=== PATIENT | female | born 1950 | race Caucasian/White ===

== ENCOUNTER 2019-05-14 21:58 | Inpatient (IN) | payer MEDICARE, OTHER, SELFPAY ==
[~2019-05-14] VITALS: Ht 157.5 cm; Wt 98.6 kg
[2019-05-14 00:25] VITALS: BP 131/68
[2019-05-14] MEDS ORDERED: PERCOCET 5MG/325MG TAB PO PRN (22:30)
[2019-05-14] MEDS ORDERED: MORPHINE 4 MG/ML 1ML VIAL/SYRINGE (J2270) IV PRN (22:30)
[2019-05-15 00:25] VITALS: BP 131/68
[2019-05-15] MEDS ORDERED: VITA-176 PO (01:03)
[2019-05-15] MEDS ORDERED: ASPI81TA85 PO (01:03)
[2019-05-15] MEDS ORDERED: LISI10TA15 PO (01:03)
[2019-05-15] MEDS ORDERED: ATOR1TAB19 PO (01:03)
[2019-05-15] MEDS ORDERED: VITAD1000T PO (01:03)
[2019-05-15] MEDS ORDERED: PROBCAP14 PO (01:03)
[2019-05-15] MEDS: LR 1,000 ML IV SCH ×4 (01:53→23:52)
[2019-05-15] MEDS: ONDANSETRON 4MG/2ML VIAL (J2405) IV PRN ×2 (02:02→02:03)
[2019-05-15] MEDS: AMPICILLIN SOD/SULBACTAM SOD 3 GM in D5W MINI-BAG PLUS 100 ML IV SCH ×4 (04:12→23:51)
[2019-05-15] MEDS: KETOROLAC 30 MG/ML VIAL (J1885) IV PRN ×2 (04:15→11:29)
[2019-05-15 06:00] VITALS: BP 110/55
[2019-05-15 06:55] LABS: BASO % 0.2 % (0.0-1.0); HEMATOCRIT 39.6 % (36.0-47.0); HEMOGLOBIN 12.8 g/dl (12.0-15.5); LYMPH # 2.4 10^3/uL (1.5-4.5); MEAN CORPUSCULAR HEMOGLOBIN 29.8 pg (27.0-33.0); MEAN CORPUSCULAR HGB CONC 32.3 g/dl (32.0-36.5); MEAN CORPUSCULAR VOLUME 92.1 fl (80.0-96.0); MONO # 1.5 10^3/uL (0.0-0.8); MONO % 7.4 % (0.0-5.0); NEUTROPHILS # 15.7 10^3/uL (1.8-7.7); NEUTROPHILS % 79.7 % (36.0-66.0); PLATELET COUNT, AUTOMATED 233 10^3/uL (150-450); WHITE BLOOD COUNT 19.7 10^3/uL (4.0-10.0)
[2019-05-15 07:19] LABS: ALBUMIN 2.8 GM/DL (3.2-5.2); ALT/SGPT 17 U/L (12-78); BILIRUBIN,TOTAL 0.7 MG/DL (0.2-1.0); BLOOD UREA NITROGEN 11 MG/DL (7-18); CALCIUM LEVEL 8.3 MG/DL (8.8-10.2); CARBON DIOXIDE LEVEL 28 MEQ/L (21-32); CHLORIDE LEVEL 104 MEQ/L (98-107); CREATININE FOR GFR 0.94 MG/DL (0.55-1.30); GLOMERULAR FILTRATION RATE > 60.0 (>45); GLUCOSE, FASTING 147 MG/DL (70-100); POTASSIUM SERUM 3.6 MEQ/L (3.5-5.1); SODIUM LEVEL 140 MEQ/L (136-145); TOTAL PROTEIN 5.9 GM/DL (6.4-8.2)
[2019-05-15] MEDS: ENOXAPARIN 40 MG/0.4 ML SYRINGE (J1650) SC SCH (09:19)
[2019-05-15] MEDS: SENOKOT S TAB PO SCH ×2 (09:19→23:51)
[2019-05-15] MEDS: PANTOPRAZOLE 40MG INJ (PROTONIX) (C9113) IV SCH (09:19)
--- NOTE | 2019-05-15 12:15 | HPEPDOC ---
General Surgery H&P Date of Admission May 15, 2019 Attending Physician: MARIAELENA BENAVIDES MD History and Physical CHIEF COMPLAINT: abdominal pain HISTORY OF PRESENT ILLNESS: Patient is transferred from [facility] ED where she presented late afternoon on 05/14/19 with 2 days history of abdominal pain centered on her epigastric area with radiation to her chest, mid back area, right and left upper quadrant area with accompanying nausea and vomiting. She was reported to be very uncomfortable despite receiving two doses of IV dilaudid. Her workup at [facility] shows she has leukocytosis of 14,000, normal LFTs. A CT scan of the abdomen and pelvis done there just shows presence of distended gallbladder with gallstones. She resides in [facility] and she is in the area or camping. 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 She did have a couple episodes earlier in the week where she had some epigastric discomfort but would go away after an hour or 2. This episode that started did not resolve, persistent and worsened. ALLERGIES: Please see below. HOME MEDICATIONS: Please see below. PAST MEDICAL HISTORY: 1. Hypercholesterolemia. 2. Hypertension 3. Diabetes done and any medication. PAST SURGICAL HISTORY: 1. 2 sections. 2. Hysterectomy 3. Infraumbilical incisional hernia repair. PERSONAL/SOCIAL HISTORY: Denies smoking, alcohol use, or recreational drug use. REVIEW OF SYSTEMS: GENERAL: Denies chills, fatigue, fever, weight gain and weight loss. HEENT: Denies blurred vision and double vision. Denies ear symptoms. Denies hoarseness. NECK: Denies any neck pain. CARDIOVASCULAR: Denies chest pain and palpitations. MUSCULOSKELETAL: Denies arthralgias, back pain and thrombophlebitis. SKIN: Denies rash. NEUROLOGIC: Denies headache, stroke and transient ischemic attack. PSYCHIATRIC: Reports history of depression. ENDOCRINE: Denies thyroid disease. HEMATOLOGY/ONCOLOGY: Denies any bleeding or clotting disorder. HEART: Denies any chest pains, palpitations, paroxysmal dyspnea, orthopnea. PULMONARY: Denies chronic cough, dyspnea and wheezing. GASTROINTESTINAL: See HPI. GENITOURINARY: Denies dysuria, frequency, hematuria and nocturia. ENDOCRINE: Denies polydipsia, polyphagia, polyuria, heat or cold intolerance. INFECTIOUS: Denies any recent upper respiratory tract infection, UTI, need for use of antibiotics. NUTRITION: Reports poor appetite. PHYSICAL EXAMINATION: VITAL SIGNS: Please see below. GENERAL APPEARANCE: Patient seen mildly uncomfortable sitting up on the bed. Awake, alert, oriented. HEENT: Normocephalic, atraumatic. [place] palpebral conjunctivae. Anicteric sclerae. Lips dry. CHEST: No chest wall abnormalities. Normal respiratory motion/effort. NECK: Supple. No thyromegaly. No lymphadenopathies. LUNGS: Lung sounds are clear to auscultation bilaterally. No wheezing appreciated. HEART: No chest wall abnormalities. Heart rate and rhythm are regular with no murmurs. ABDOMEN: Abdomen is obese, markedly rounded, nondistended. She is tender on palpation over the right upper quadrant and epigastric area with mild guarding. She is nontender in the left side of the abdomen or in the lower abdomen.. SKIN: Warm and dry. EXTREMITIES: Extremities have no deformities. No edema identified. NEUROLOGICAL: Awake, alert, oriented. ANCILLARIES: . LABORATORY DATA: Please see below. MICROBIOLOGY: Please see below. IMAGING: She is here abdomen and pelvis done at [facility] shows distended gallbladder, possible cholelithiasis. IMPRESSION AND PLAN: Cholelithiasis with either severe biliary colic but most likely acute cholecystitis. Persistent discomfort over the right upper quadrant area. Initial leukocytosis is worsened this morning to 19,000 though her discomfort seems to be starting to fade away. I think she is in the middle of her course for cholecystitis. I discussed with her options which would include continue the antibiotics and if successful interval cholecystectomy versus performing cholecystectomy during his admission. On a bit concerned with the increasing le ukocytosis. She does continue to have normal LFTs. I think this reflects the degree of inflammation of her gallbladder and she would benefit from performing cholecystectomy at this time which would most likely cut short her inflammatory response. I discussed with her the risks and benefits of having procedure done in the face of acute inflammation which has some mild increase of bleeding, bile duct injury or bile leakage and conversion to open surgery. Consent has been obtained from patient verbally.. Vital Signs Vital Signs Date Time Temp Pulse Resp B/P (MAP) Pulse Ox O2 Delivery O2 Flow Rate FiO2 05/15/19 06:00 98.4 81 16 110/55 (73) 95 I&Os I&O- Last 24 Hours up to 6 AM 05/15/19 06:00 Intake Total 725 ml Balance 725 ml Laboratory Data Labs 24H Laboratory Tests 2 05/15/19 06:13: Immature Granulocyte % (Auto) 0.7, White Blood Count 19.7H, Red Blood Count 4.30, Hemoglobin 12.8, Hematocrit 39.6, Mean Corpuscular Volume 92.1, Mean Corpuscular Hemoglobin 29.8, Mean Corpuscular Hemoglobin Concent 32.3, Red Cell Distribution Width 13.6, Platelet Count 233, Neutrophils (%) (Auto) 79.7H, Lymphocytes (%) (Auto) 12.0L, Monocytes (%) (Auto) 7.4H, Eosinophils (%) (Auto) 0.0, Basophils (%) (Auto) 0.2, Neutrophils # (Auto) 15.7H, Lymphocytes # (Auto) 2.4, Monocytes # (Auto) 1.5H, Eosinophils # (Auto) 0.0, Basophils # (Auto) 0.0, Nucleated Red Blood Cells % (auto) 0.0, Anion Gap 8, Glomerular Filtration Rate > 60.0, Blood Urea Nitrogen 11, Creatinine 0.94, Sodium Level 140, Potassium Level 3.6, Chloride Level 104, Carbon Dioxide Level 28, Calcium Level 8.3L, Aspartate Amino Transf (AST/SGOT) 10, Alanine Aminotransferase (ALT/SGPT) 17, Alkaline Phosphatase 84, Total Bilirubin 0.7, Total Protein 5.9L, Albumin 2.8L, Albumin/Globulin Ratio 0.90L CBC/BMP Laboratory Tests 05/15/19 06:13 Red Blood Count 4.30, Mean Corpuscular Volume 92.1, Mean Corpuscular Hemoglobin 29.8, Mean Corpuscular Hemoglobin Concent 32.3, Red Cell Distribution Width 13.6, Neutrophils (%) (Auto) 79.7 H, Lymphocytes (%) (Auto) 12.0 L, Monocytes (%) (Auto) 7.4 H, Eosinophils (%) (Auto) 0.0, Basophils (%) (Auto) 0.2, Neutr ophils # (Auto) 15.7 H, Lymphocytes # (Auto) 2.4, Monocytes # (Auto) 1.5 H, Eosinophils # (Auto) 0.0, Basophils # (Auto) 0.0, Calcium Level 8.3 L, Aspartate Amino Transf (AST/SGOT) 10, Alanine Aminotransferase (ALT/SGPT) 17, Alkaline Phosphatase 84, Total Bilirubin 0.7, Total Protein 5.9 L, Albumin 2.8 L Home Medications Scheduled Aspirin (Aspir 81) 81 Mg Tablet.dr, 81 MG PO DAILY, (Reported) Atorvastatin Calcium (Atorvastatin Calcium) 10 Mg Tablet, 5 MG PO DAILY, (Reported) Cholecalciferol (Vitamin D3) (Vitamin D3) 1,000 Unit Tab.chew, 1,000 UNIT PO DAILY, (Reported) Lactobacillus Acidophilus (Probiotic) 1 Each Capsule, 1 CAP PO DAILY, (Reported) Lisinopril/Hydrochlorothiazide (Lisinopril-Hctz 10-12.5 mg Tab) 1 Each Tablet, 1 TAB PO DAILY, (Reported) Allergies Coded Allergies: Sulfa (Sulfonamide Antibiotics) (Unverified Allergy, Intermediate, hives, 05/15/19) codeine (Unverified Adverse Reaction, Intermediate, nausea, 05/15/19) A-FIB/CHADSVASC A-FIB History Current/History of A-Fib/PAF?: No Current PO Anticoag Therapy: No MARIAELENA BENAVIDES MD May 15, 2019 12:15
[2019-05-15] MEDS ORDERED: BUPIVACAINE HCL 0.25% 30 ML VIAL As Ordered ONE (20:02)
[2019-05-15] MEDS ORDERED: LIDOCAINE 1% SDV INJ 30 ML VIAL As Ordered ONE (20:02)
[2019-05-15] MEDS ORDERED: dexameTHASONE 4 MG/ML 1ML VIAL (J1100) As Ordered ONE (20:15)
[2019-05-15] MEDS ORDERED: PROPOFOL 200 MG/20 ML VIAL As Ordered ONE (20:15)
[2019-05-15] MEDS ORDERED: ONDANSETRON 4MG/2ML VIAL (J2405) As Ordered ONE (20:15)
[2019-05-15] MEDS ORDERED: LIDOCAINE 2% INJ 100 MG/5 ML SDV (FOR ANES.) As Ordered ONE (20:15)
[2019-05-15] MEDS ORDERED: MIDAZOLAM INJ 2 MG/2 ML VIAL (J2250) As Ordered ONE (20:15)
[2019-05-15] MEDS ORDERED: fentaNYL 100 MCG/2 ML INJECTION (J3010) As Ordered ONE ×3 (20:15→21:41)
[2019-05-15] MEDS ORDERED: ROCURONIUM BROMIDE 50 MG/5 ML VIAL As Ordered ONE ×2 (20:15→21:20)
[2019-05-15] MEDS ORDERED: KETOROLAC 60 MG/2 ML VIAL (J1885) As Ordered ONE (20:56)
[2019-05-15] MEDS ORDERED: METOCLOPRAMIDE INJ 10MG/2ML VIAL (J2765) As Ordered ONE (20:57)
[2019-05-15] MEDS ORDERED: ACETAMINOPHEN 1000MG 100ML IV BTL (OFIRMEV) (J0131 PER 10MG) As Ordered ONE (21:03)
[2019-05-15] MEDS ORDERED: SUGAMMADEX SODIUM 500 MG/5 ML VIAL (BRIDION) As Ordered ONE (22:15)
--- NOTE | 2019-05-15 22:38 | ROOPDOC ---
[facility] Report Of Operation Report of Operation DATE OF PROCEDURE: 05/15/19 PREOPERATIVE DIAGNOSIS: Acute Cholecystitis POSTOPERATIVE DIAGNOSIS: Acute over chronic cholecystitis FINDINGS: thickened gallbladder, distended, acutely inflamed with 2 large stones in the body and neck of the gallbladder. (+)surrounding pericholecystic edema, omental adhesion and fibrinous exudates on the wall of the gallbladder. omental adhesions to area of the umbilicus and above it lysed. PROCEDURE: Laparoscopic Cholecystectomy SURGEON: Gary Browne FLASHER ADJUSTER: ANESTHESIA: General Anesthesia SPECIMENS: gallbladder ESTIMATED BLOOD LOSS: 50 REPLACED: DRAINS: 10 flat marce drain COMPLICATIONS: none, patient extubated to PACU DESCRIPTION OF PROCEDURE: . GARY BROWNE MD May 15, 2019 22:38
[2019-05-15] MEDS ORDERED: DESFLURANE 240 ML INHALANT As Ordered ONE (22:42)
[2019-05-15] MEDS ORDERED: LR 1,000 ML IV SCH (23:00)
[2019-05-15] MEDS ORDERED: oxyCODONE 5MG TAB PO PRN (23:00)
[2019-05-15] MEDS ORDERED: ONDANSETRON 4MG/2ML VIAL (J2405) IV PRN (23:00)
[2019-05-15] MEDS ORDERED: fentaNYL 100 MCG/2 ML INJECTION (J3010) IV PRN (23:00)
[2019-05-15 23:25] VITALS: BP 132/60
[2019-05-16] VITALS (9 sets, daily range): BP systolic 115–140; BP diastolic 55–66
[2019-05-16] MEDS: AMPICILLIN SOD/SULBACTAM SOD 3 GM in D5W MINI-BAG PLUS 100 ML IV SCH ×4 (03:06→21:05)
[2019-05-16 05:56] LABS: BASO % 0.2 % (0.0-1.0); HEMATOCRIT 37.4 % (36.0-47.0); HEMOGLOBIN 12.1 g/dl (12.0-15.5); LYMPH # 0.8 10^3/uL (1.5-4.5); LYMPH % 4.2 % (24.0-44.0); MEAN CORPUSCULAR HEMOGLOBIN 30.6 pg (27.0-33.0); MEAN CORPUSCULAR HGB CONC 32.4 g/dl (32.0-36.5); MEAN CORPUSCULAR VOLUME 94.4 fl (80.0-96.0); MONO # 1.2 10^3/uL (0.0-0.8); MONO % 5.8 % (0.0-5.0); NEUTROPHILS # 17.9 10^3/uL (1.8-7.7); NEUTROPHILS % 89.1 % (36.0-66.0); PLATELET COUNT, AUTOMATED 161 10^3/uL (150-450); RED BLOOD COUNT 3.96 10^6/uL (4.00-5.40); WHITE BLOOD COUNT 20.1 10^3/uL (4.0-10.0)
[2019-05-16 06:17] LABS: ALBUMIN 2.3 GM/DL (3.2-5.2); ALT/SGPT 32 U/L (12-78); BILIRUBIN,TOTAL 0.7 MG/DL (0.2-1.0); BLOOD UREA NITROGEN 14 MG/DL (7-18); CALCIUM LEVEL 8.5 MG/DL (8.8-10.2); CARBON DIOXIDE LEVEL 28 MEQ/L (21-32); CHLORIDE LEVEL 105 MEQ/L (98-107); CREATININE FOR GFR 0.82 MG/DL (0.55-1.30); GLOMERULAR FILTRATION RATE > 60.0 (>45); GLUCOSE, FASTING 206 MG/DL (70-100); POTASSIUM SERUM 3.8 MEQ/L (3.5-5.1); SODIUM LEVEL 139 MEQ/L (136-145)
[2019-05-16] MEDS: KETOROLAC 30 MG/ML VIAL (J1885) IV PRN (06:22)
[2019-05-16] MEDS: LR 1,000 ML IV SCH (08:34)
[2019-05-16] MEDS: SENOKOT S TAB PO SCH ×2 (08:36→21:05)
[2019-05-16] MEDS: PANTOPRAZOLE 40MG INJ (PROTONIX) (C9113) IV SCH (08:36)
[2019-05-16] MEDS: ATORVASTATIN 5MG PER 1/2 TABLET PO SCH (08:36)
[2019-05-16] MEDS: ENOXAPARIN 40 MG/0.4 ML SYRINGE (J1650) SC SCH (08:37)
--- NOTE | 2019-05-16 10:02 | IPNPDOC ---
Subjective General Date/Time Seen The patient was seen on 05/16/19 at 10:02. Subject Chief Complaint/History The patient is a 68-year-old female admitted with a reason for visit of Acute Cholecystitis. feels better postop, denies nausea. She is tolerating clears. No perioperative overnight events. Current Medications Current Medications Current Medications Medications (Trade) Dose Ordered Sig/Juaquin Route PRN Reason Start Time Stop Time Status Last Admin Dose Admin Ampicillin Sodium/ Sulbactam Sodium 3 gm/Dextrose 100 ml @ 200 mls/hr Q6H IV 05/15/19 03:00 05/16/19 08:36 Atorvastatin Calcium (Lipitor) 5 mg DAILY PO 05/16/19 09:00 05/16/19 08:36 Enoxaparin Sodium (Lovenox) 40 mg DAILY SC 05/15/19 09:00 05/16/19 08:37 Fentanyl Citrate (Sublimaze) 25 mcg Q5MP PRN IV MODERATE PAIN (PS 4-7) 05/15/19 23:00 05/16/19 00:00 DC Home Med (Med Rec Complete!) ASDIRECTED XX 05/15/19 01:30 05/15/19 01:40 DC Ketorolac Tromethamine (ToRADol) 30 mg Q6HP PRN IV MILD/MODERATE PAIN (PS 1-7) 05/14/19 22:30 05/19/19 22:29 05/16/19 06:22 Lactated Ringer's 1,000 ml @ 100 mls/hr Q10H IV 05/15/19 23:00 05/16/19 00:00 DC Lactated Ringer's 1,000 ml @ 125 mls/hr Q8H IV 05/14/19 22:16 05/16/19 08:34 Morphine Sulfate (Morphine Sulfate Inj) 4 mg Q2HP PRN IV SEVERE PAIN (PS 8-10) 05/14/19 22:30 05/15/19 01:52 Ondansetron HCl (ZOFRAN INJection) 4 mg Q4HP PRN IV NAUSEA OR VOMITING 05/15/19 23:00 05/16/19 00:00 DC Ondansetron HCl (ZOFRAN INJection) 4 mg Q6HP PRN IV NAUSEA OR VOMITING 05/14/19 22:30 05/15/19 02:02 Oxycodone HCl (Roxicodone, Oxyir) 5 mg ASDIRECTED PRN PO MILD/MODERATE PAIN (PS 1-7) 05/15/19 23:00 05/16/19 00:00 DC Oxycodone/ Acetaminophen (Percocet 5mg/ 325mg Tablet) 1 tab Q4HP PRN PO MODERATE PAIN (PS 5-7) 05/14/19 22:30 Oxycodone/ Acetaminophen (Percocet 5mg/ 325mg Tablet) 2 tab Q6HP PRN PO SEVERE PAIN (PS 8-10) 05/14/19 22:30 Pantoprazole Sodium (Protonix) 40 mg DAILY IV 05/15/19 09:00 05/16/19 08:36 Senna/Docusate Sodium (Senokot S) 1 tab BID PO 05/15/19 09:00 05/16/19 08:36 Allergies Coded Allergies: Sulfa (Sulfonamide Antibiotics) (Unverified Allergy, Intermediate, hives, 05/15/19) codeine (Unverified Adverse Reaction, Intermediate, nausea, 05/15/19) Objective Physical Examination Examination GENERAL APPEARANCE:looks very comfortable. SKIN: Warm and moist. HEENT: Normocephalic, atraumatic. [place] palpebral conjunctiva, anicteric sclerae. Lips and mucosa appear moist. NECK: Supple, no thyromegaly. No obvious jugular venous distention. LUNGS: Clear to auscultation bilaterally. No wheezing appreciated. HEART: No chest wall abnormalities. Regular rate and rhythm with no murmurs appreciated. ABDOMEN: Abdomen is obese, soft, nondistended. port site dressings are C/D/I. JAVI drain light pink serosanguenous. Minimal tenderness over epigastric port site. Minimal RUQ tenderness EXTREMITIES: Extremities have no deformities. No edema identified. Vital Signs Vital Signs Date Time Temp Pulse Resp B/P (MAP) Pulse Ox O2 Delivery O2 Flow Rate FiO2 05/16/19 06:00 98.1 60 14 117/57 (77) 95 2.0 I&Os I&O- Last 24 Hours up to 6 AM 05/16/19 06:00 Intake Total 3120 ml Output Total 430 ml Balance 2690 ml Laboratory Data Labs 24H Laboratory Tests 2 05/16/19 05:43: Immature Granulocyte % (Auto) 0.7, White Blood Count 20.1H, Red Blood Count 3.96L, Hemoglobin 12.1, Hematocrit 37.4, Mean Corpuscular Volume 94.4, Mean Corpuscular Hemoglobin 30.6, Mean Corpuscular Hemoglobin Concent 32.4, Red Cell Distribution Width 13.5, Platelet Count 161, Neutrophils (%) (Auto) 89.1H, Lymphocytes (%) (Auto) 4.2L, Monocytes (%) (Auto) 5.8H, Eosinophils (%) (Auto) 0.0, Basophils (%) (Auto) 0.2, Neutrophils # (Auto) 17.9H, Lymphocytes # (Auto) 0.8L, Monocytes # (Auto) 1.2H, Eosinophils # (Auto) 0.0, Basophils # (Auto) 0.0, Nucleated Red Blood Cells % (auto) 0.0, Anion Gap 6L, Glomerular Filtration Rate > 60.0, Blood Urea Nitrogen 14, Creatinine 0.82, Sodium Level 139, Potassium Level 3.8, Chloride Level 105, Carbon Dioxide Level 28, Calcium Level 8.5L, A spartate Amino Transf (AST/SGOT) 37, Alanine Aminotransferase (ALT/SGPT) 32, Alkaline Phosphatase 75, Total Bilirubin 0.7, Total Protein 6.0L, Albumin 2.3L, Albumin/Globulin Ratio 0.62L CBC/BMP Laboratory Tests 05/16/19 05:43 Red Blood Count 3.96 L, Mean Corpuscular Volume 94.4, Mean Corpuscular Hemoglobin 30.6, Mean Corpuscular Hemoglobin Concent 32.4, Red Cell Distribution Width 13.5, Neutrophils (%) (Auto) 89.1 H, Lymphocytes (%) (Auto) 4.2 L, Monocytes (%) (Auto) 5.8 H, Eosinophils (%) (Auto) 0.0, Basophils (%) (Auto) 0.2, Neutrophils # (Auto) 17.9 H, Lymphocytes # (Auto) 0.8 L, Monocytes # (Auto) 1.2 H, Eosinophils # (Auto) 0.0, Basophils # (Auto) 0.0, Calcium Level 8.5 L, Aspartate Amino Transf (AST/SGOT) 37, Alanine Aminotransferase (ALT/SGPT) 32, Alkaline Phosphatase 75, Total Bilirubin 0.7, Total Protein 6.0 L, Albumin 2.3 L Impression POD1 Laparoscopic Cholecystectomy for Acute Cholecystitis Doing well. Will advance her diet, SL IVF. WBC still 20 K. I expect this to go down within a day or two. LFTs post op are normal. No signs of bile leakage Plan / VTE VTE Prophylaxis Ordered?: Yes MARIAELENA BENAVIDES MD May 16, 2019 10:02
[2019-05-17] MEDS: AMPICILLIN SOD/SULBACTAM SOD 3 GM in D5W MINI-BAG PLUS 100 ML IV SCH ×2 (03:58→09:11)
[2019-05-17] MEDS: PERCOCET 5MG/325MG TAB PO PRN ×2 (04:11→10:30)
[2019-05-17 06:00] VITALS: BP 142/63
[2019-05-17 06:33] LABS: BASO % 0.2 % (0.0-1.0); EOS % 0.2 % (0.0-3.0); HEMATOCRIT 34.8 % (36.0-47.0); HEMOGLOBIN 11.2 g/dl (12.0-15.5); LYMPH # 2.3 10^3/uL (1.5-4.5); LYMPH % 13.5 % (24.0-44.0); MEAN CORPUSCULAR HEMOGLOBIN 29.9 pg (27.0-33.0); MEAN CORPUSCULAR HGB CONC 32.2 g/dl (32.0-36.5); MEAN CORPUSCULAR VOLUME 92.8 fl (80.0-96.0); MONO # 1.2 10^3/uL (0.0-0.8); MONO % 6.8 % (0.0-5.0); NEUTROPHILS # 13.4 10^3/uL (1.8-7.7); NEUTROPHILS % 78.4 % (36.0-66.0); PLATELET COUNT, AUTOMATED 199 10^3/uL (150-450); RED BLOOD COUNT 3.75 10^6/uL (4.00-5.40)
[2019-05-17 06:56] LABS: ALBUMIN 2.3 GM/DL (3.2-5.2); ALT/SGPT 33 U/L (12-78); BILIRUBIN,TOTAL 0.5 MG/DL (0.2-1.0); BLOOD UREA NITROGEN 16 MG/DL (7-18); CALCIUM LEVEL 8.4 MG/DL (8.8-10.2); CARBON DIOXIDE LEVEL 30 MEQ/L (21-32); CHLORIDE LEVEL 105 MEQ/L (98-107); CREATININE FOR GFR 0.74 MG/DL (0.55-1.30); GLOMERULAR FILTRATION RATE > 60.0 (>45); GLUCOSE, FASTING 143 MG/DL (70-100); POTASSIUM SERUM 3.4 MEQ/L (3.5-5.1); SODIUM LEVEL 141 MEQ/L (136-145); TOTAL PROTEIN 6.2 GM/DL (6.4-8.2)
[2019-05-17] MEDS ORDERED: POTASSIUM CHLORIDE 10 MEQ SR TABLET PO SCH (09:00)
[2019-05-17] MEDS: ENOXAPARIN 40 MG/0.4 ML SYRINGE (J1650) SC SCH (09:12)
[2019-05-17] MEDS: SENOKOT S TAB PO SCH (09:12)
[2019-05-17] MEDS: PANTOPRAZOLE 40MG INJ (PROTONIX) (C9113) IV SCH (09:12)
[2019-05-17] MEDS ORDERED: PERCOCET PO (09:19)
[2019-05-17] MEDS ORDERED: CIPR500T3 PO (09:21)
[2019-05-17] MEDS ORDERED: METR-265 PO (09:22)
--- NOTE | 2019-05-17 09:26 | DS.PDOC ---
Discharge Summary General Date of Admission May 15, 2019 at 00:29 Date of Discharge 05/17/2019 Attending Physician: MARIAELENA BENAVIDES MD Discharge Summary PROCEDURES PERFORMED DURING STAY: Laparoscopic cholecystectomy (05/15/2019). ADMITTING DIAGNOSES: 1. Acute cholecystitis. DISCHARGE DIAGNOSES: 1. Acute cholecystitis status post laparoscopic cholecystectomy. COMPLICATIONS/CHIEF COMPLAINT: Acute Cholecystitis. HISTORY OF PRESENT ILLNESS: HOSPITAL COURSE: Patient was transferred from [facility] emergency room where she presented to my care. She was started on antibiotics. He is Unasyn 3 g IV every 6 hours. She was underwent laparoscopic cholecystectomy. Consistent with her history she had an inflamed gallbladder with 2 large stones in the body and neck the gall bladder. I left a drain for postop monitoring which only put out serosanguineous fluid. No signs of bile leakage. She remained hemodynamically stable, afebrile. She was started on clear liquids and subsequently advanced to regular diet which she tolerated. She had persistent leukocytosis. 20,000 on postop day 1 and on discharge 17,000 but she is not showing any signs of severe sepsis. Her JAVI drain was discontinued prior to her going home. DISCHARGE MEDICATIONS: Please see below. ALLERGIES: Please see below. PHYSICAL EXAMINATION ON DISCHARGE: VITAL SIGNS: Please see below. GENERAL: HEENT: NECK: CARDIOVASCULAR EXAMINATION: RESPIRATORY EXAMINATION: ABDOMINAL EXAMINATION: EXTREMITIES: SKIN: NEUROLOGICAL EXAMINATION: PSYCHIATRIC EXAMINATION: LABORATORY DATA: Please see below. IMAGING: PROGNOSIS: ACTIVITY: [As tolerated]. DIET: DISCHARGE PLAN: DISPOSITION: . DISCHARGE INSTRUCTIONS: 1. . ITEMS TO FOLLOWUP ON ON OUTPATIENT: 1. . DISCHARGE CONDITION: [Stable]. TIME SPENT ON DISCHARGE: Greater than [30] minutes. Vital Signs/I&Os Vital Signs Date Time Temp Pulse Resp B/P (MAP) Pulse Ox O2 Delivery O2 Flow Rate FiO2 05/17/19 06:00 97.8 73 20 142/63 (89) 92 05/16/19 06:00 2.0 I&O- Last 24 Hours up to 6 AM 05/17/19 05:59 Intake Total 3045 ml Output Total 815 ml Balance 2230 ml Laboratory Data Labs 24H Laboratory Tests 2 05/17/19 06:13: Immature Granulocyte % (Auto) 0.9, White Blood Count 17.0H, Red Blood Count 3.75L, Hemoglobin 11.2L, Hematocrit 34.8L, Mean Corpuscular Volume 92.8, Mean Corpuscular Hemoglobin 29.9, Mean Corpuscular Hemoglobin Concent 32.2, Red Cell Distribution Width 13.5, Platelet Count 199, Neutrophils (%) (Auto) 78.4H, Lymphocytes (%) (Auto) 13.5L, Monocytes (%) (Auto) 6.8H, Eosinophils (%) (Auto) 0.2, Basophils (%) (Auto) 0.2, Neutrophils # (Auto) 13.4H, Lymphocytes # (Auto) 2.3, Monocytes # (Auto) 1.2H, Eosinophils # (Auto) 0.0, Basophils # (Auto) 0.0, Nucleated Red Blood Cells % (auto) 0.0, Anion Gap 6L, Glomerular Filtration Rate > 60.0, Blood Urea Nitrogen 16, Creatinine 0.74, Sodium Level 141, Potassium Level 3.4L, Chloride Level 105, Carbon Dioxide Level 30, Calcium Level 8.4L, Aspartate Amino Transf (AST/SGOT) 31, Alanine Aminotransferase (ALT/SGPT) 33, Alkaline Phosphatase 98, Total Bilirubin 0.5, Total Protein 6.2L, Albumin 2.3L, Albumin/Globulin Ratio 0.59L CBC/BMP Laboratory Tests 05/17/19 06:13 Red Blood Count 3.75 L, Mean Corpuscular Volume 92.8, Mean Corpuscular Hemoglobin 29.9, Mean Corpuscular Hemoglobin Concent 32.2, Red Cell Distribution Width 13.5, Neutrophils (%) (Auto) 78.4 H, Lymphocytes (%) (Auto) 13.5 L, Monocytes (%) (Auto) 6.8 H, Eosinophils (%) (Auto) 0.2, Basophils (%) (Auto) 0.2, Neutrophils # (Auto) 13.4 H, Lymphocytes # (Auto) 2.3, Monocytes # (Auto) 1.2 H, Eosinophils # (Auto) 0.0, Basophils # (Auto) 0.0, Calcium Level 8.4 L, Aspartate Amino Transf (AST/SGOT) 31, Alanine Aminotransferase (ALT/SGPT) 33, Alkaline Phosphatase 98, Total Bilirubin 0.5, Total Protein 6.2 L, Albumin 2.3 L Discharge Medications Scheduled Aspirin (Aspir 81) 81 Mg Tablet.dr, 81 MG PO DAILY, (Reported) Atorvastatin Calcium (Atorvastatin Calcium) 10 Mg Tablet, 5 MG PO DAILY, (Reported) Cholecalciferol (Vitamin D3) (Vitamin D3) 1,000 Unit Tab.chew, 1,000 UNIT PO DAILY, (Reported) Ciprofloxacin HCl (Ciprofloxacin HCl) 500 Mg Tablet, 500 MG PO BID Lactobacillus Acidophilus (Probiotic) 1 Each Capsule, 1 CAP PO DAILY, (Reported) Lisinopril/Hydrochlorothiazide (Lisinopril-Hctz 10-12.5 mg Tab) 1 Each Tablet, 1 TAB PO DAILY, (Reported) Metronidazole (Metronidazole) 500 Mg Tablet, 500 MG PO TID Scheduled PRN Oxycodone/Acetaminophen (Oxycodone-Acetaminophen 5-325) 1 Each Tablet, 1-2 TAB PO Q4-6HP PRN for SEVERE PAIN (PS 8-10) Allergies Coded Allergies: Sulfa (Sulfonamide Antibiotics) (Unverified Allergy, Intermediate, hives, 05/15/19) codeine (Unverified Adverse Reaction, Intermediate, nausea, 05/15/19) MARIAELENA BENAVIDES MD May 17, 2019 09:26
[2019-05-17] MEDS: ATORVASTATIN 5MG PER 1/2 TABLET PO SCH (09:29)
== END 2019-05-17 12:07 | disposition home or self-care (01) | DRG 419 ==
LOC: M MSPAV 05-15 00:29
PROVIDERS: ADMIT Surgery; ATTEND Surgery
PROC: 0FT44ZZ Resection of Gallbladder, Percutaneous Endoscopic Approach (ICD-10-PCS; principal; 2019-05-15 08:00)
DX: K80.00 Calculus of gallbladder with acute cholecystitis without obstruction (principal); Z79.82 Long term (current) use of aspirin; Z79.899 Other long term (current) drug therapy; Z88.2 Allergy status to sulfonamides; Z88.5 Allergy status to narcotic agent